=== PATIENT | female | born 1965 | race Caucasian/White ===

== ENCOUNTER → 2017-06-21 | Day surgery (SDC) | payer OTHER ==
[~2017-06-21] VITALS: Ht 170.2 cm; Wt 98.4 kg
[~2017-06-21] MED LIST: ADVIL200 M2 PO; EXFORGE 5-3201 EACH PO; LANTUS SOL100 UNIT/1 SC; PRAVACHOL40 M1 PO; PROAIR HFA8.5 GM INH; TRULICITY1.5 MG/0.5 SC; TYLENOL PM EX-1 EACH PO
--- NOTE | 2017-06-21 08:29 | History & Physical Pre-Op ---
General Information and HPI History of Present Illness: Chasidy is a 51-year-old female with a long-standing and worsening complaint of a painful neuroma left foot. Patient has undergone an extended course of conservative care, including shoe gear and activity modification, rest, immobilization and courses of NSAIDs. None of this is yielded her any significant relief. The patient presents today for preoperative surgical consultation. Allergies/Medications Allergies: Coded Allergies: Penicillins (HIVES 06/18/17) Home Med list Acetaminophen/Diphenhydramine (Tylenol Pm Ex-Strength Caplet) 500 MG-25 MG TABLET 2 TAB PO QPM PRN SLEEP (Reported) Albuterol Sulfate (Proair Hfa) 90 MCG HFA.AER.AD 2 PUF INH PRN ASTHMA ( Reported) Amlodipine/Valsartan (Exforge 5-320 MG Tablet) 5 MG-320 MG TABLET 1 TAB PO DAILY BP (Reported) Dulaglutide (Trulicity) 1.5 MG/0.5 ML PEN.INJCTR 1.5 MG SC QSUN DM (Reported) Ibuprofen (Advil) 200 MG TABLET 2 TAB PO PRN PAIN/INFLAMMATION (Reported) Insulin Glargine,Hum.rec.anlog (Lantus Solostar) 100 UNIT/ML (3 ML) INSULN.PEN 12 UNITS SC QPM DM (Reported) Pravastatin Sodium (Pravachol) 40 MG TABLET 1 TAB PO DAILY CHOLESTEROL ( Reported) Past History Medical History Cardiovascular: hypertension, hyperlipidemia Gastrointestinal: GERD Surgical History Pertinent Surgical History: non-contributory Review of Systems Review of Systems: Unremarkable except for noted to present illness Exam & Diagnostic Data Physical Exam: Lungs clear bilaterally. Heart sounds rate and rhythm regular. Lower extremity physical exam demonstrates intact pedal pulses bilaterally. Both dorsalis pedis and posterior tibial arteries are palpable bilaterally. Patient without any sensory motor deficits. Deep tendon reflexes grossly intact. Patient noted to have a positive Maria De Jesus sign to the interspace left foot. Also noted to have pain with palpation to the dorsal aspect of the left midfoot. Assessment/Plan Assessment/Plan: Painful neuroma and exostosis left foot. A lengthy discussion reviewing both surgical and conservative options was held the patient at bedside and the patient elects to go forward with surgery despite the risks. As Ranked By This Provider Problem List: 1. Lesion of left plantar nerve Attending MD Review Statement Attending Statement Attending MD Statement: examined this patient
--- NOTE | 2017-06-21 11:05 | Operative Report ---
Operative/Inv Procedure Report Surgery Date: 06/21/17 Name of Procedure: 1 ostectomy dorsal left foot 2 excision of neuroma left foot 3 intraoperative administration of ankle block anesthesia Pre-Operative Diagnosis: 1 painful exostosis dorsal left foot 2 Frost's neuroma left foot Post-Operative Diagnosis: Same Estimated Blood Loss: scant Surgeon/Interim Controller: Jenni KATZ,Cisco Smalls DPM Anesthesia: moderate sedation, block Operative/Procedure Note Note: After obtaining informed consent the patient was brought to the operating room and placed on the operating table in the supine position. The patient isn't securely fastened to the operating table utilizing safety belt. After administration of IV sedation, 10 mL of 0.5% Marcaine plain was obtained about the patient's left ankle. Well-padded ankle tourniquet was placed about the patient's left lower extremity. 600 mg of kanamycin O delivered intravenously times one dose. Left foot and ankle then scrubbed prepped and draped in usual aseptic manner. Left lower extremity is elevated to examine to limb, which point the ankle tourniquet inflated 250 mmHg. His dorsal aspect of the left foot, where a 3 cm linear incision made over the dorsal aspect of the second met cuneiform joint. The skin was signed 15 blade and carried out subtenons tissues. All vital neurovascular structures were identified protected. The periosteum overlying the joint was then incised reflected. The bony exostosis then removed with a osteotome and mallet and bone bur. The wound was irrigated cuff Svensson normal sterile saline. Deep tissues reapproximated 4-0 Vicryl skin is reprepped for nylon. This was then directed to the distal third interspace where a 3 cm incision was incised with 15 blade and carried out subtenons tissues. All vital neurovascular structures were identified and protected. The digital branches of the neuroma were identified and freed. The body of the neuroma was freed from the adjacent soft tissues, distracted distally and cut proximally. Specimen was sent for pathologic inspection. The deep transverse intermetatarsal ligament was then sectioned. The deep tissues reports a 4-0 Vicryl skin is reprepped for nylon. Incision was dressed with Xeroform 4 x 4's Kerlix and Ruben wrap. The patient noted tolerate both procedure and anesthesia well and the patient was transported from the operative room to recovery by sent stable best assess intact all digits left foot. Please cc a copy of this dictation to Alonso Smalls DPM.
== END ==
LOC: STS 03:23
DX: G57.62 Lesion of plantar nerve, left lower limb (principal); M89.9 Disorder of bone, unspecified; E11.9 Type 2 diabetes mellitus without complications; Z79.4 Long term (current) use of insulin; M19.072 Primary osteoarthritis, left ankle and foot; J45.909 Unspecified asthma, uncomplicated; I10 Essential (primary) hypertension; K21.9 Gastro-esophageal reflux disease without esophagitis
CPT/HCPCS: 88304; J1100; J2001; J2250